=== PATIENT | female | born 1995 | race African-American/Black ===

== ENCOUNTER 2018-01-06 10:13 | Emergency (ER) | payer SELFPAY ==
[~2018-01-06] VITALS: Ht 162.6 cm; Wt 53.6 kg
[~2018-01-06 10:13] MED LIST: BACTRIM DS1 TAB PO; CIPROFLOXACN500 MG PO; DEP0PROVERA IM; GENOPTIC0.3 % OU; GENTAMICIN SULF5 ML OP; IMPLANON68 MG SC; NO HOME MEDS; POLYMYX OU; PYRIDIUM200 MG PO; SPRINTEC 2828 DAY PO; TRAMADOL HCL50 MG PO; TRIMETHOPRIM OU; TYLENOL # 31 TAB OR
[2018-01-06] MEDS ORDERED: DEPO-ESTRADIO5 MG/ML IM (10:20)
[2018-01-06] MEDS ORDERED: BACTRIM DS1 TAB PO (10:30)
[2018-01-06] MEDS ORDERED: CEPHALEXIN500 MG PO (10:30)
[2018-01-06 10:36] VITALS: BP 116/78
== END 2018-01-06 10:40 | disposition home or self-care (01) | DRG 601 ==
LOC: ED 10:13
DX: N61.0 Mastitis without abscess (principal); N64.52 Nipple discharge